=== PATIENT | male | born 1935 | race Caucasian/White ===

== ENCOUNTER → 2016-12-02 | Outpatient (CLI) | payer MEDICAID, OTHER ==
[~2016-12-02] MED LIST: ASPI-556 PO; ATOR40TA71 PO; BACL10TA PO; FLUT16H NASAL; FLUT1DIS3 IH; LEVO75 PO; LORA-703 PO; MONT10TA24 PO; NAPR250T2 PO; PANT40TA25 PO; TAMS0.4C32 PO; TIOT185 IH
== END | disposition home or self-care (01) ==
LOC: RADMN 13:52
PROVIDERS: ATTEND Internal Medicine Critical Care Medicine
DX: J44.9 Chronic obstructive pulmonary disease, unspecified (principal)
CPT/HCPCS: 94010; 94726; 94727; 94729

== ENCOUNTER 2020-06-28 08:00 | Emergency (ER) | payer MEDICARE, OTHER ==
[~2020-06-28] VITALS: Ht 167.6 cm; Wt 75.0 kg
[~2020-06-28 08:00] MED LIST changes: +LORA-550 PO; -LORA-703 PO; -MONT10TA24 PO; +MONT10TA32 PO; +NAPR-1197 PO; -NAPR250T2 PO; +PANT-31 PO; -PANT40TA25 PO
[2020-06-28 08:56] LABS: COVID AG,FIA SOURCE NASAL SWAB
[2020-06-28 09:02] LABS: BASOPHILS % (AUTO) 0.6 % (0.0-2.0); EOSINOPHILS % (AUTO) 0.2 % (1.0-6.0); HEMATOCRIT 41.8 % (41-53); HEMOGLOBIN 14.1 g/dL (13.5-17.5); LYMPHOCYTES # (AUTO) 0.7 K/uL (1.0-4.8); MEAN CORPUSCULAR HEMOGLOBIN 32.8 pg (26.0-34.0); MEAN CORPUSCULAR HGB CONC 33.8 G/dL (31.0-37.0); MEAN CORPUSCULAR VOLUME 97 fL (80-100); MONOCYTES % (AUTO) 18.5 % (2.0-9.0); NEUTROPHILS # (AUTO) 3.9 K/uL (1.8-7.7); NEUTROPHILS % (AUTO) 68.7 % (40.0-70.0); PLATELET COUNT (AUTO) 160 K/uL (150-450); RED CELL DISTRIBUTION WIDTH 12.9 % (11.5-14.5)
[2020-06-28 09:07] LABS: CALCIUM, TOTAL 8.4 mg/dL (8.8-10.5); CREATININE 1.17 mg/dL (0.60-1.30); POTASSIUM 3.7 mmol/L (3.5-5.1)
[2020-06-28 09:14] LABS: ALBUMIN 3.7 g/dL (3.4-5.0); BILIRUBIN,TOTAL 0.6 mg/dL (0.1-1.0)
[2020-06-28 10:22] LABS: COVID AG,FIA SOURCE NASOPHARYNGEAL
[2020-06-28 11:00] VITALS: BP 129/80
== END 2020-06-28 11:17 | disposition home or self-care (01) ==
LOC: EMS 08:00
DX: U07.1 COVID-19 (principal); J12.89 Other viral pneumonia; J44.9 Chronic obstructive pulmonary disease, unspecified; I10 Essential (primary) hypertension; Z79.82 Long term (current) use of aspirin
CPT/HCPCS: 36415; 71045; 80053; 83880; 84484; 85025; 87426; 93005; 99285; U0003